=== PATIENT | female | born 1950 | race Caucasian/White ===

== ENCOUNTER 2018-04-17 16:23 | Emergency (ER) | payer MEDICARE, MEDICAID ==
[~2018-04-17] VITALS: Ht 175.3 cm; Wt 119.1 kg
--- NOTE | 2018-04-17 18:07 | NUR ---
pt back from ct
[2018-04-17 18:14] LABS: URINE AMPHETAMINE SCREEN NEGATIVE (Neg); URINE BARBITUATE SCREEN NEGATIVE (Neg); URINE BENZODIAZEPINES SCREEN NEGATIVE (Neg); URINE CANNABINOID SCREEN NEGATIVE (Neg); URINE COCAINE SCREEN NEGATIVE (Neg); URINE METHADONE SCREEN NEGATIVE (Neg); URINE OPIATE SCREEN NEGATIVE (Neg); URINE PHENCYCLIDINE SCREEN NEGATIVE (Neg)
[2018-04-17 18:31] LABS: BASOPHILS # (AUTO) 0.1 X10'3 (0-0.2); BASOPHILS % (AUTO) 1.8 % (0-1); EOSINOPHILS # (AUTO) 0.4 X10'3 (0-0.9); EOSINOPHILS % (AUTO) 4.8 % (0-6); HEMATOCRIT 36.5 % (35.0-45.0); HEMOGLOBIN 11.7 g/dl (12.0-16.0); LYMPHOCYTES # (AUTO) 2.4 X10'3 (1.1-4.8); LYMPHOCYTES % (AUTO) 29.5 % (21-51); MEAN CORPUSCULAR HEMOGLOBIN 29.1 PG (27.0-31.0); MEAN CORPUSCULAR HGB CONC 32.2 g/dL (33.0-36.5); MEAN CORPUSCULAR VOLUME 90.3 FL (78-98); MONOCYTES # (AUTO) 0.8 X10'3 (0-0.9); MONOCYTES % (AUTO) 9.9 % (2-12); NEUTROPHILS # (AUTO) 4.4 X10'3 (1.8-7.7); PLATELET COUNT 402 X10'3 (140-440); RED BLOOD COUNT 4.04 X10'6 (4.20-5.60); WHITE BLOOD COUNT 8.2 X10'3 (4.5-11.0)
[2018-04-17 18:44] LABS: ALANINE AMINOTRANSFERASE 14 U/L (12-78); ALBUMIN 3.4 G/DL (3.4-5.0); ALBUMIN/GLOBULIN RATIO 0.8 (1.1-1.5); ALKALINE PHOSPHATASE 99 IU/L (46-116); ANION GAP 10 (8-16); ASPARTATE AMINO TRANSFERASE 15 U/L (10-37); BILIRUBIN,TOTAL 0.2 MG/DL (0.1-1.0); BLOOD UREA NITROGEN 20 MG/DL (7-18); BUN/CREATININE RATIO 17.1 (6.6-38.0); CHLORIDE 106 MMOL/L (99-107); CREATININE 1.17 MG/DL (0.40-0.90); GLUCOSE 90 MG/DL (70-104); POTASSIUM 4.1 MMOL/L (3.5-5.1); SODIUM 142 MMOL/L (135-145); TOTAL CARBON DIOXIDE 26.3 MMOL/L (24-32); TOTAL PROTEIN 7.5 G/DL (6.4-8.2); eGFR 46 ML/MIN
[2018-04-17 18:52] LABS: ETHANOL < 0.010 GM/DL (0.0-0.010)
[2018-04-17] MEDS ORDERED: MECL12.584 PO (19:03)
[2018-04-17 19:21] VITALS: BP 150/95
== END 2018-04-17 19:23 | disposition home or self-care (01) ==
LOC: ER 16:24
DX: R42 Dizziness and giddiness (principal); E78.00 Pure hypercholesterolemia, unspecified; Z88.8 Allergy status to other drugs, medicaments and biological substances; Z79.899 Other long term (current) drug therapy
CPT/HCPCS: 36415; 70450; 80053; 80305; 80320; 84443; 85025; 93005; 99284

== ENCOUNTER 2018-10-23 07:11 | Day surgery (SDC) | payer MEDICARE, MEDICAID ==
[2018-10-18 10:04] LABS: CLARITY,URINE SLIGHTLY CLOUDY (Clear); COLOR,URINE YELLOW (Yellow); GLUCOSE, URINE NEGATIVE (Neg); KETONES,URINE NEGATIVE (Neg); LEUKOCYTE ESTERASE ,URINE NEGATIVE (Neg); NITRITES, URINE NEGATIVE (Neg); OCCULT BLOOD,URINE NEGATIVE (Neg); PH,URINE 5.5 (4.8-8.0); PROTEIN,URINE TRACE mg/dl (Neg); UROBILINOGEN,URINE 0.2 E.U/dL (0.2-1.0)
[2018-10-18 10:07] LABS: BASOPHILS # (AUTO) 0.2 X10'3 (0-0.2); MEAN PLATELET VOLUME 8.7 FL (7.4-10.4); MONOCYTES # (AUTO) 0.8 X10'3 (0-0.9); MONOCYTES % (AUTO) 9.4 % (2-12)
[2018-10-18 10:08] LABS: EOSINOPHILS # (AUTO) 0.4 X10'3 (0-0.9); LYMPHOCYTES # (AUTO) 1.7 X10'3 (1.1-4.8); LYMPHOCYTES % (AUTO) 18.6 % (21-51); MEAN CORPUSCULAR HEMOGLOBIN 29.2 PG (27.0-31.0); MEAN CORPUSCULAR HGB CONC 32.7 g/dL (33.0-36.5); MEAN CORPUSCULAR VOLUME 89.3 FL (78-98); NEUTROPHILS # (AUTO) 5.9 X10'3 (1.8-7.7); PRE OP HEMOGLOBIN 11.8 g/dL (12.0-16.0); PRE OP PLATELET COUNT 467 X10'3 (140-440); RED BLOOD COUNT 4.03 X10'6 (4.20-5.60); RED CELL DISTRIBUTION WIDTH 15.2 % (11.5-14.5)
[2018-10-18 10:13] LABS: UA COLLECTION TYPE CLN CATCH MIDSTREAM
[2018-10-18 10:16] LABS: HYALINE CASTS >30 /LPF (NEGATIVE); MUCUS STRANDS MODERATE /LPF (Neg); SQUAMOUS EPITHELIAL CELL,UR MODERATE /LPF (FEW)
[2018-10-18 10:18] LABS: BACTERIA,URINE 1+ /HPF (Neg); RBC,URINE 0-2 /HPF (0-2); TRANSITIONAL EPI CELLS,URINE FEW /HPF; WBC,URINE 0-4 /HPF (0-4)
[2018-10-18 10:18] LABS: ALBUMIN 3.6 G/DL (3.4-5.0); ALBUMIN/GLOBULIN RATIO 0.9 (1.1-1.5); ALKALINE PHOSPHATASE 104 IU/L (46-116); BLOOD UREA NITROGEN 25 MG/DL (7-18); BUN/CREATININE RATIO 18.8 (6.6-38.0); CALCIUM 9.4 MG/DL (8.5-10.1); CHLORIDE 106 MMOL/L (99-107); CREATININE 1.33 MG/DL (0.40-0.90); PRE OP ALT 20 U/L (30-65); PRE OP ANION GAP 7 (8-16); PRE OP AST 16 U/L (10-37); PRE OP BILIRUB, TOTAL 0.4 MG/DL (0.0-1.0); PRE OP GLUCOSE 100 MG/DL (70-104); PRE OP POTASSIUM 4.5 MMOL/L (3.4-5.1); PRE OP SODIUM 139 MMOL/L (135-145); TOTAL CARBON DIOXIDE 25.8 MMOL/L (24-32); TOTAL PROTEIN 7.5 G/DL (6.4-8.2); eGFR 40 ML/MIN
[~2018-10-23] VITALS: Ht 175.3 cm; Wt 117.9 kg
[2018-10-23] VITALS (12 sets, daily range): BP systolic 137–157; BP diastolic 68–91
[~2018-10-23 07:11] MED LIST: ARMO150T2 PO; ASPI-529 PO; BUPR300T53 PO; CA/MG/ZINC PO; CHOL100044 PO; CYAN50008 SL; ENAL5TAB21 PO; LEVO137T2 PO; LORA1TAB PO; ONDA4TAB6 PO; PANT20TA3 PO; RIZA5TAB16 PO; SIMV40TA PO; VILA40TA PO; VITA400C67 PO; cefazolin/dext.iso 2gm/50ml 50 ML IV ONE; famotidine 20mg tablet PO ONE; ringers solution, lacted 1,000 ML IV SCH
[2018-10-23] MEDS ORDERED: ringers solution, lacted 1,000 ML IV SCH (08:24)
[2018-10-23] MEDS ORDERED: meperidine/PF 25mg/ml syringe IV PRN ×2 (08:25)
[2018-10-23] MEDS ORDERED: morphine 4 MG/ML inj SYRINge IV PRN ×2 (08:25)
[2018-10-23] MEDS ORDERED: ondansetron/PF 4mg/2ml inj IV PRN (08:25)
[2018-10-23] MEDS ORDERED: proCHLORperazine 10 MG/2 ml inj IV PRN (08:25)
[2018-10-23] MEDS ORDERED: BUPIVACAINE liposomal/PF 13.3 MG/ML vial IM ONE (09:24)
[2018-10-23] MEDS ORDERED: BUPIVAcaine/PF 2.5 mg/ml (0.25%) 30ml vial ONE (09:24)
[2018-10-23] MEDS ORDERED: desflurane 240ml liquid inh. IH ONE (09:35)
[2018-10-23] MEDS ORDERED: ondansetron/PF 4mg/2ml inj ONE (09:35)
[2018-10-23] MEDS ORDERED: midazolam 2 mg/2 ml injection ONE (09:44)
[2018-10-23] MEDS ORDERED: fentaNYL/PF 50MCG/1 ML 2ML syringe ONE (09:44)
[2018-10-23] MEDS ORDERED: propofol inj 20 ML IV ONE (09:49)
[2018-10-23] MEDS ORDERED: LIDOcaine 2% (20mg/ml) 5ml vial ONE (09:49)
[2018-10-23] MEDS ORDERED: dexamethasone sod phosphate 4mg/ml inj. ONE (10:07)
[2018-10-23] MEDS ORDERED: ketorolac trometh. 30mg/ml inj. ONE (10:07)
--- NOTE | 2018-10-23 10:46 | NUR ---
Received from OR via [facility], accompanied by Anesthesiologist DR MARTI and report given by Anesthesiologist. PT VERY DROWSY, NO S/S OF DISTRESS/DISCOMFORT. FOAM TAPE COVERING ANUS, CDI. Addendum: 10/23/18 at 1129 by Christina Waggoner RN Amended: Links added.
[2018-10-23] MEDS: meperidine/PF 25mg/ml syringe IV PRN ×4 (11:19→12:07)
--- NOTE | 2018-10-23 13:36 | NUR ---
D/C INSTRUCTIONS GIVEN AND GONE OVER W/PT, PT VERBALIZES UNDERSTANDING, PT D/CD TO HOME VIA W/C TO PRIVATE VEHICLE W/O INCIDENT. Addendum: 10/23/18 at 1356 by Christina Waggoner RN Amended: Links added.
== END 2018-10-23 13:36 | disposition home or self-care (01) ==
LOC: PAS 07:11
PROVIDERS: ATTEND Surgery
DX: K64.3 Fourth degree hemorrhoids (principal); K64.4 Residual hemorrhoidal skin tags; F41.9 Anxiety disorder, unspecified; F42.9 Obsessive-compulsive disorder, unspecified; G43.909 Migraine, unspecified, not intractable, without status migrainosus; I10 Essential (primary) hypertension; K21.9 Gastro-esophageal reflux disease without esophagitis; G47.30 Sleep apnea, unspecified; F98.8 Other specified behavioral and emotional disorders with onset usually occurring in childhood and adolescence; E03.9 Hypothyroidism, unspecified; E66.01 Morbid (severe) obesity due to excess calories; Z68.38 Body mass index [BMI] 38.0-38.9, adult; Z79.899 Other long term (current) drug therapy; Z91.018 Allergy to other foods; Z79.82 Long term (current) use of aspirin
CPT/HCPCS: 36415; 46255; 80053; 81001; 82948; 85025; 93005; A6224; C9290; J1100; J1885; J2001; J2175; J2250; J2405; J2704; J3010; J3490; J7120; 88304; A4215; A4618; A6449; A7000

== ENCOUNTER 2019-07-26 12:27 | Emergency (ER) | payer MEDICARE, MEDICAID ==
[~2019-07-26] VITALS: Ht 175.3 cm; Wt 110.5 kg
[~2019-07-26 12:27] MED LIST changes: -cefazolin/dext.iso 2gm/50ml 50 ML IV ONE; -famotidine 20mg tablet PO ONE; -ringers solution, lacted 1,000 ML IV SCH
--- NOTE | 2019-07-26 13:06 | NUR ---
Pt c/o feeling "sleepy" and was misspelling her words while texting this morning. Pt recognized words were misspelled and was able to correct errors. Pt was concerned and called her PCP office. Pt spoke with staff at PCP office who instructed her to call 911. Pt presents fully awake and alert, no signs of drowsiness or sleepiness. Pt has full recall of todays events. Denies ever feeling any numbness or limpness on either side of body.
--- NOTE | 2019-07-26 13:13 | NUR ---
Pt also denies taking any medications that could contribute to feeling more sleepy. Pt reports she "slept well" last night as well.
[2019-07-26 15:52] VITALS: BP 149/92
== END 2019-07-26 15:50 | disposition home or self-care (01) ==
LOC: ER 12:27
DX: Z13.89 Encounter for screening for other disorder (principal); R53.83 Other fatigue; R53.1 Weakness; G43.909 Migraine, unspecified, not intractable, without status migrainosus; E78.00 Pure hypercholesterolemia, unspecified; Z88.8 Allergy status to other drugs, medicaments and biological substances; Z79.82 Long term (current) use of aspirin; Z79.899 Other long term (current) drug therapy
CPT/HCPCS: 99281; 99283

== ENCOUNTER 2021-09-09 13:49 | Emergency (ER) | payer MEDICARE, MEDICAID ==
[~2021-09-09] VITALS: Ht 175.3 cm; Wt 100.9 kg
[~2021-09-09 13:49] MED LIST changes: -CYAN50008 SL; +CYAN50009 SL; +PANT20TA18 PO; -PANT20TA3 PO
[2021-09-09 13:53] VITALS: BP 142/84
== END 2021-09-09 15:34 | disposition home or self-care (01) ==
LOC: ER 13:49
DX: H93.8X3 Other specified disorders of ear, bilateral (principal); G43.909 Migraine, unspecified, not intractable, without status migrainosus; E78.00 Pure hypercholesterolemia, unspecified; F41.9 Anxiety disorder, unspecified; F32.A Depression, unspecified; Z88.8 Allergy status to other drugs, medicaments and biological substances; Z88.1 Allergy status to other antibiotic agents; Z79.899 Other long term (current) drug therapy; Z79.82 Long term (current) use of aspirin
CPT/HCPCS: 99282

== ENCOUNTER 2022-09-10 11:40 | Emergency (ER) | payer MEDICARE, MEDICAID ==
[~2022-09-10] VITALS: Ht 175.3 cm; Wt 103.6 kg
[~2022-09-10 11:40] MED LIST changes: +AMIT50TA15 PO; -ARMO150T2 PO; +ARMO250T2 PO; +ATEN-169 PO; +BUPR-94 PO; +CYAN-104 PO; -CYAN50009 SL; -ENAL5TAB21 PO; +FLUT16SP26 BOTHNARES; +HYDR-3686 PO; +LAMO25TA5 PO; -LEVO137T2 PO; +LEVO150T PO; +NYST1000 PO; -ONDA4TAB6 PO; -PANT20TA18 PO; -RIZA5TAB16 PO; +ROPI1TAB47 PO; +ROSU20TA2 PO; -SIMV40TA PO; +UBRO100T PO; -VILA40TA PO; -VITA400C67 PO; +[UNRECOGNIZED DRUG - CODE] PO
[2022-09-10 11:42] VITALS: TEMP 98.5
--- NOTE | 2022-09-10 12:17 | NUR ---
PT TAKEN TO CT.
[2022-09-10 12:57] LABS: BASOPHILS # (AUTO) 0.1 X10'3 (0-0.2); BASOPHILS % (AUTO) 0.9 % (0-1); EOSINOPHILS # (AUTO) 0.2 X10'3 (0-0.9); EOSINOPHILS % (AUTO) 2.5 % (0-6); HEMOGLOBIN 12.5 g/dl (12.0-16.0); LYMPHOCYTES # (AUTO) 1.2 X10'3 (1.1-4.8); LYMPHOCYTES % (AUTO) 14.6 % (21-51); MEAN CORPUSCULAR HEMOGLOBIN 31.8 PG (27.0-31.0); MEAN CORPUSCULAR HGB CONC 32.8 g/dL (33.0-36.5); MEAN PLATELET VOLUME 8.3 FL (7.4-10.4); MONOCYTES # (AUTO) 0.6 X10'3 (0-0.9); MONOCYTES % (AUTO) 7.4 % (2-12); NEUTROPHILS # (AUTO) 6.2 X10'3 (1.8-7.7); NEUTROPHILS % (AUTO) 74.6 % (42-75); PLATELET COUNT 347 X10'3 (140-440); RED BLOOD COUNT 3.92 X10'6 (4.20-5.60); RED CELL DISTRIBUTION WIDTH 13.8 % (11.5-14.5); WHITE BLOOD COUNT 8.3 X10'3 (4.5-11.0)
[2022-09-10 13:25] LABS: ALANINE AMINOTRANSFERASE 21 U/L (12-78); ALBUMIN 3.4 G/DL (3.4-5.0); ALBUMIN/GLOBULIN RATIO 0.9 (1.1-1.5); ALKALINE PHOSPHATASE 127 IU/L (46-116); ANION GAP 7 (8-16); ASPARTATE AMINO TRANSFERASE 18 U/L (10-37); BLOOD UREA NITROGEN 14 MG/DL (7-18); BUN/CREATININE RATIO 13.6 (10.0-20.0); CALCIUM 9.5 MG/DL (8.5-10.1); CHLORIDE 102 MMOL/L (99-107); CREATININE 1.03 MG/DL (0.40-0.90); GLUCOSE 108 MG/DL (70-104); LIPASE < 50 U/L (73-393); POTASSIUM 4.3 MMOL/L (3.5-5.1); SODIUM 137 MMOL/L (135-145); TOTAL CARBON DIOXIDE 28.5 MMOL/L (24-32); TOTAL PROTEIN 7.3 G/DL (6.4-8.2); eGFR 53 ML/MIN
[2022-09-10 13:28] LABS: BILIRUBIN,TOTAL 0.3 MG/DL (0.1-1.0)
[2022-09-10] MEDS ORDERED: AMOX-580 PO (13:49)
[2022-09-10] MEDS ORDERED: METR-159 PO (13:49)
[2022-09-10] MEDS ORDERED: amox tr/potassium clavulanate 875/125mg TAB PO ONE (13:50)
[2022-09-10] MEDS ORDERED: metroNIDAZOLE 500mg tablet PO ONE (13:50)
[2022-09-10 14:10] LABS: CLARITY,URINE CLEAR (Clear); COLOR,URINE YELLOW (Yellow); GLUCOSE, URINE NEGATIVE (Neg); KETONES,URINE NEGATIVE (Neg); LEUKOCYTE ESTERASE ,URINE NEGATIVE (Neg); NITRITES, URINE NEGATIVE (Neg); OCCULT BLOOD,URINE NEGATIVE (Neg); PH,URINE 6.5 (4.8-8.0); PROTEIN,URINE NEGATIVE (Neg); UA COLLECTION TYPE CLN CATCH MIDSTREAM; UROBILINOGEN,URINE 0.2 E.U/dL (0.2-1.0)
[2022-09-10 14:34] VITALS: BP 155/80; PULSE 68; RESP 17; O2SAT 99
== END 2022-09-10 14:47 | disposition home or self-care (01) ==
LOC: ER 11:40
DX: K52.9 Noninfective gastroenteritis and colitis, unspecified (principal); R61 Generalized hyperhidrosis; G43.909 Migraine, unspecified, not intractable, without status migrainosus; E78.00 Pure hypercholesterolemia, unspecified; I10 Essential (primary) hypertension; E03.9 Hypothyroidism, unspecified; Z88.8 Allergy status to other drugs, medicaments and biological substances; Z88.1 Allergy status to other antibiotic agents; Z79.899 Other long term (current) drug therapy; Z79.82 Long term (current) use of aspirin
CPT/HCPCS: 36415; 74176; 80053; 81003; 83690; 85025; 99284